=== PATIENT | male | born 1945 | race Caucasian/White ===

== ENCOUNTER → 2021-09-07 10:53 | Outpatient (BNVA) | payer MEDICARE, MEDICAID, SELFPAY | PROVIDERS: PCP General Practice; Visit Provider Internal Medicine Endocrinology, Diabetes & Metabolism | DX: E11.65 Type 2 diabetes mellitus with hyperglycemia (principal); Z79.4 Long term (current) use of insulin; Z79.84 Long term (current) use of oral hypoglycemic drugs | CPT/HCPCS: 82947; 99212 ==

== ENCOUNTER → 2022-02-14 10:07 | Outpatient (BNVA) | payer MEDICARE, MEDICAID, SELFPAY | PROVIDERS: PCP General Practice; Visit Provider Internal Medicine Endocrinology, Diabetes & Metabolism | DX: E11.65 Type 2 diabetes mellitus with hyperglycemia (principal); Z79.01 Long term (current) use of anticoagulants; Z51.81 Encounter for therapeutic drug level monitoring | CPT/HCPCS: 82947; 83036; 99212 ==

== ENCOUNTER 2022-07-18 09:00 | Outpatient (REF) | payer MEDICARE, MEDICAID, SELFPAY ==
[2022-07-18 10:01] LABS: Anion Gap 14 (12-20); Blood Urea Nitrogen 22 mg/dL (9-16); Calcium 9.7 mg/dL (8.4-10.2); Carbon Dioxide 24 mmol/L (22-29); Chloride 105 mmol/L (96-108); Cholesterol 264 mg/dL; Estimated Glomerular Filt Rate 60; Glucose Random 186 mg/dL (60-115); HDL Cholesterol 38 mg/dL; LDL Cholesterol Calculated 180 mg/dl; Potassium 4.3 mmol/L (3.3-5.1); Sodium 139 mmol/L (135-145); Triglycerides 233 mg/dL
[2022-07-18 10:38] LABS: Creatinine Urine 77.91 mg/dL; Microalbum/Creatinine Ratio Ur 17.9 ug/mg cr
== END 2022-07-18 09:01 | disposition home or self-care (01) ==
LOC: HO.LAB 09:00
PROVIDERS: Visit Provider Internal Medicine Endocrinology, Diabetes & Metabolism
DX: E11.65 Type 2 diabetes mellitus with hyperglycemia (principal)
CPT/HCPCS: 36415; 80048; 80061; 82043

== ENCOUNTER → 2022-07-20 08:55 | Outpatient (BNVA) | payer MEDICARE, MEDICAID, SELFPAY | PROVIDERS: PCP General Practice; Visit Provider Registered Nurse Diabetes Educator | DX: E11.65 Type 2 diabetes mellitus with hyperglycemia (principal) | CPT/HCPCS: 99211 ==

== ENCOUNTER 2022-08-02 09:46 | Outpatient (REF) | payer OTHER, MEDICAID, SELFPAY ==
--- NOTE | ~2022-08-02 | XR_ITS ---
EXAMINATION: XR CHEST CLINICAL INFORMATION: Shortness of breath. Positive PPD COMPARISON: July 16, 2015 TECHNIQUE: 2 views of the chest were obtained. FINDINGS: No significant abnormality is noted involving the heart, lungs, mediastinum, bony thorax or soft tissues. XR/XR chest 2V IMPRESSION: No acute disease.
== END 2022-08-02 09:47 | disposition home or self-care (01) ==
LOC: HO.XRAY 09:46
PROVIDERS: Visit Provider Internal Medicine
DX: R76.11 Nonspecific reaction to tuberculin skin test without active tuberculosis (principal)
CPT/HCPCS: 71046

== ENCOUNTER → 2022-08-09 10:56 | Outpatient (BNVA) | payer OTHER, MEDICAID, SELFPAY | PROVIDERS: PCP General Practice; Visit Provider Internal Medicine Endocrinology, Diabetes & Metabolism | DX: E11.65 Type 2 diabetes mellitus with hyperglycemia (principal) | CPT/HCPCS: 82947; 83036; 99212 ==

== ENCOUNTER 2022-10-02 09:54 | Outpatient (REF) | payer OTHER, MEDICAID, SELFPAY ==
[2022-10-02 13:02] LABS: Thyroid Stimulating Hormone 5.91 uIU/mL (0.32-4.0)
== END 2022-10-02 09:55 | disposition home or self-care (01) ==
LOC: HO.HHCL 09:54
PROVIDERS: Student in an Organized Health Care Education/Training Program; Visit Provider General Practice
DX: R94.6 Abnormal results of thyroid function studies (principal)
CPT/HCPCS: 36415; 84443

== ENCOUNTER 2023-10-19 10:12 | Emergency (ER) | payer OTHER, SELFPAY ==
[2023-10-19 10:18] VITALS: BP 137/84; PULSE 75; RESP 16; TEMP 36.6; O2SAT 94; BMI 28.7
--- NOTE | 2023-10-19 10:55 | ED_ITS ---
HPI - Eye Problem General Chief complaint: Eye Problems Stated complaint: eye pain pt is blind Time Seen by Provider: 10/19/23 10:49 History of Present Illness HPI Narrative: Patient has been blind for many years He complains over past 10 days he has had some pain in the upper aspect of his right eye Family reports that his cat 10 days ago and he has been crying and rubbing his eye a lot Family says he has been sleeping well at night but complaining of the pain in his right eye Family denies any rash or any other possible injury, denies any discharge from the eye denies any possible foreign body Related Data Home Medications ?Medication ?Instructions ?Recorded ?Confirmed aspirin 81 mg tablet,delayed 81 mg PO QAM 09/07/21 release cholecalciferol (vitamin D3) 50 50 mcg PO QAM 09/07/21 mcg (2,000 unit) tablet tamsulosin 0.4 mg capsule 0.4 mg PO QAM 09/07/21 cyanocobalamin (vitamin B-12) 1,000 mcg PO Q OTHER DAY 02/14/22 1,000 mcg tablet blood sugar diagnostic (FreeStyle 08/09/22 Lite Strips) blood-glucose meter (FreeStyle 08/09/22 Lite Meter kit) insulin glargine 100 unit/mL (3 40 unit subcut DAILY 08/09/22 mL) subcutaneous pen (Lantus Solostar U-100 Insulin) lancets 28 gauge (FreeStyle 08/09/22 Lancets) Previous Rx's ?Medication ?Instructions ?Recorded pen needle, diabetic 32 gauge x #50 ea 02/02/20 (BD Manasa 2nd Gen Pen Needle) metformin 500 mg tablet,extended 1,000 mg (2 x 500 mg) PO BID 30 02/27/20 release 24 hr days #120 tabs flash glucose scanning reader #1 ea 08/09/22 (FreeStyle Michael 2 [place]) atorvastatin 40 mg tablet 40 mg PO DAILY #30 tabs 01/17/23 dulaglutide 3 mg/0.5 mL 3 mg (0.5 mL) subcut QWEEK #2 mL 02/23/23 subcutaneous pen injector (SpineGuard) flash glucose sensor (FreeStyle #2 kits 02/23/23 Michael 2 Sensor kit) Allergies Allergy/AdvReac Type Severity Reaction Status Date / Time Beef Containing Products Allergy Unknown SWELLING Verified 10/19/23 10:23 penicillin G [Penicillin G] Allergy Unknown RASH,ITCHIN Verified 10/19/23 10:23 G penicillin V Allergy Unknown Swelling Verified 10/19/23 10:23 shrimp Allergy Unknown SWELLING Verified 10/19/23 10:23 [facility] Past Medical History Source: nursing notes reviewed Medical History (Updated 10/19/23 @ 12:11 by KELLY Marinelli) Diabetes type 2, uncontrolled Surgical History No pertinent past surgical history Family History Family History Mother No problems noted. Father No problems noted. Social History Social History Patient Tobacco Use Status: Never used Tobacco Advance Directives: No Advance Directives Information Provided: Yes Physical Exam Vital Signs: Vital Signs: Last Vital Signs Temp 97.8 F 10/19/23 10:18 Pulse 75 10/19/23 10:18 Resp 16 10/19/23 10:18 BP 137/84 10/19/23 10:18 Pulse Ox 94 10/19/23 10:18 O2 Del Method Room Air 10/19/23 10:18 BMI result Body Mass Index 28.7 General appearance no acute distress Head is normocephalic atraumatic neck is supple Respiratory no distress Extremities full range motion x4 Eye exam the right eye is blind and has been for a long time Extraocular motions are intact Flipping back the upper lid no foreign body visible no stye Lower lid normal as well, there is no discharge from the eye Staining with fluorescein did not show any dye uptake although he did have some relief of discomfort with tetracaine Ocular pressures tested with Gilles-Pen were normal Course Course Course Narrative: On exam I did not see any dye uptake but the patient had very good relief with tetracaine and was no longer complaining of eye pain, pressure reading was normal Patient will be discharged diagnosis eye pain, possibly a corneal abrasion that I missed as it was relieved with tetracaine Medications Administered Discontinued Medications Generic Name Dose Route Start Last Admin Trade Name Freq PRN Reason Stop Dose Admin Fluorescein Sodium 1 strip 10/19/23 11:35 10/19/23 11:42 Fluorescein Sodium Strip EYE-RIGHT 10/19/23 11:36 1 strip ONCE ONE Administration Fluorescein Sodium 1 strip 10/19/23 11:58 10/19/23 11:59 Fluorescein Sodium Strip EYE-LEFT 10/19/23 11:59 1 strip ONCE ONE Administration Tetracaine HCl 1 drop 10/19/23 11:35 10/19/23 11:42 Tetracaine Hcl/Pf 0.5% Oph Dahlia 4 Ml Drops EYE-RIGHT 10/19/23 11:36 1 drop ONCE ONE Administration Discharge Plan Discharge Clinical Impression: Eye pain Patient Disposition: Home, Self-Care Additional Instructions: I did not find any emergent condition in the right eye It did not appear to be infected, I did not see any foreign body under the upper lid or the lower lid, it is possible that he had a small scratch as pain was relieved with the drops If pain continues follow with eye doctor or primary doctor Return any time any worse condition or any concerns Use Tylenol as needed Prescriptions: No Action (DME) pen needle, diabetic [BD Manasa 2nd Gen Pen Needle] 32 gauge x 5/32 needle See Rx Instructions .MEDSUPPLY Qty: 50 4RF Rx Instructions: once a day metformin 500 mg tablet extended release 24 hr 1,000 mg PO BID 30 Days Qty: 120 2RF atorvastatin 40 mg tablet 40 mg PO DAILY Qty: 30 5RF (DME) FreeStyle Michael 2 Sensor Kit See Rx Instructions .ROUTE .COMPLEX Qty: 2 5RF Dose Instruction: USE DIRECTED TO TEST BLOOD SUGAR CHANGE EVERY 14 DAYS Rx Instructions: USE DIRECTED TO TEST BLOOD SUGAR CHANGE EVERY 14 DAYS Trulicity 3 mg/0.5 mL pen injector 3 mg subcut QWEEK Qty: 2 5RF cholecalciferol (vitamin D3) 50 mcg (2,000 unit) tablet 50 mcg PO QAM tamsulosin 0.4 mg capsule 0.4 mg PO QAM aspirin 81 mg tablet,delayed release (DR/EC) 81 mg PO QAM cyanocobalamin (vitamin B-12) 1,000 mcg tablet 1,000 mcg PO Q OTHER DAY Lantus Solostar U-100 Insulin 100 unit/mL (3 mL) insulin pen 40 unit subcut DAILY (DME) FreeStyle Lite Strips Strip See Rx Instructions .Route Rx Instructions: As directed (DME) blood-glucose meter [FreeStyle Lite Meter] Kit See Rx Instructions .Route Rx Instructions: As directed (DME) lancets [FreeStyle Lancets] 28 gauge misc See Rx Instructions .Route Rx Instructions: As directed (DME) FreeStyle Michael 2 [place] Misc See Rx Instructions .Route Qty: 1 0RF Rx Instructions: As directed Referrals: Dallas Araujo [Physician] - Print Language: Turkish
[2023-10-19] MEDS: Fluorescein Sodium STRIP 1 STRIP EYE-RIGHT (11:42)
[2023-10-19] MEDS: Tetracaine HCl/PF 0.5% Oph Sol 4 ML DROPS 1 DROP EYE-RIGHT (11:42)
[2023-10-19] MEDS: Fluorescein Sodium STRIP 1 STRIP EYE-LEFT (11:59)
[2023-10-19] MEDS: Acetaminophen 325 MG TABLET 975 MG PO (12:24)
[2023-10-19 12:47] VITALS: BP 137/84; PULSE 75; RESP 16; TEMP 36.6; O2SAT 94
== END 2023-10-19 12:47 | disposition home or self-care (01) ==
PROVIDERS: Emergency Provider Student in an Organized Health Care Education/Training Program
DX: H57.11 Ocular pain, right eye (principal)
CPT/HCPCS: 99283

== ENCOUNTER 2024-02-19 12:20 | Emergency (ER) | payer OTHER, SELFPAY ==
--- NOTE | ~2024-02-19 | XR_ITS ---
EXAMINATION: XR KNEE, RIGHT CLINICAL INFORMATION: pain COMPARISON: None available. TECHNIQUE: Four views of the right knee. FINDINGS: No acute cortical disruption or malalignment. Joint space narrowing involving the medial compartment. No suprapatellar bursa joint effusion. No lytic or blastic lesions. Vascular calcifications. No metallic or radiopaque foreign body. XR/XR knee RT 2V IMPRESSION: Medial compartment osteoarthrosis. Atherosclerosis disease, peripheral. Electronically signed by: North Fontana MD 02/19/2024 02:59 PM EST RP
[2024-02-19 13:20] VITALS: BP 145/87; PULSE 80; RESP 18; TEMP 36.6; O2SAT 96; BMI 31.6
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
[2024-02-19] MEDS: Ibuprofen 600 MG TABLET PO (13:28)
[2024-02-19 15:41] VITALS: BP 110/54; PULSE 68; RESP 16; TEMP 36.4; O2SAT 97
== END 2024-02-19 15:44 | disposition home or self-care (01) ==
PROVIDERS: Emergency Provider Emergency Medicine
DX: M17.11 Unilateral primary osteoarthritis, right knee (principal); M25.561 Pain in right knee; E11.9 Type 2 diabetes mellitus without complications; Z79.899 Other long term (current) drug therapy; Z79.4 Long term (current) use of insulin
CPT/HCPCS: 73560; 99283

== ENCOUNTER → 2024-02-19 13:24 | Outpatient (BNV) | payer OTHER, SELFPAY | PROVIDERS: Emergency Provider Emergency Medicine; Visit Provider Radiology Diagnostic Radiology | DX: M17.11 Unilateral primary osteoarthritis, right knee (principal) | CPT/HCPCS: 73560 ==

== ENCOUNTER 2024-02-21 00:24 | Emergency (ER) | payer OTHER, SELFPAY ==
[2024-02-21 00:30] VITALS: BP 140/72; PULSE 86; O2SAT 98
[2024-02-21 00:32] VITALS: BP 168/80; PULSE 89; RESP 22; TEMP 36.7; O2SAT 94; BMI 28.3
[2024-02-21] MEDS: Acetaminophen 325 MG TABLET 975 MG PO (00:48)
[2024-02-21 02:33] VITALS: BP 169/97; PULSE 82; RESP 16; TEMP 36.2; O2SAT 95
--- NOTE | 2024-02-21 02:58 | ED.EXTPRO ---
HPI - Extremity Problem General Chief complaint: Extremity Injury, Lower Stated complaint: 12/26 R knee & leg, can't walk, deaf&blind bangladeshi Time Seen by Provider: 02/21/24 02:58 Source: patient and family Mode of arrival: ambulatory Limitations: no limitations History of Present Illness ED Provider: HPI Narrative: Patient's history of severe arthritis received in intra-articular steroid about 6 months ago was doing fine now comes here with increased pain again in the right knee especially on ambulation took Tylenol with much relief Related Data Home Medications ?Medication ?Instructions ?Recorded ?Confirmed aspirin 81 mg tablet,delayed 81 mg PO QAM 09/07/21 release cholecalciferol (vitamin D3) 50 50 mcg PO QAM 09/07/21 mcg (2,000 unit) tablet tamsulosin 0.4 mg capsule 0.4 mg PO QAM 09/07/21 cyanocobalamin (vitamin B-12) 1,000 mcg PO Q OTHER DAY 02/14/22 1,000 mcg tablet blood sugar diagnostic (FreeStyle 08/09/22 Lite Strips) blood-glucose meter (FreeStyle 08/09/22 Lite Meter kit) insulin glargine 100 unit/mL (3 40 unit subcut DAILY 08/09/22 mL) subcutaneous pen (Lantus Solostar U-100 Insulin) lancets 28 gauge (FreeStyle 08/09/22 Lancets) Previous Rx's ?Medication ?Instructions ?Recorded pen needle, diabetic 32 gauge x #50 ea 02/02/20 5/32 (BD Manasa 2nd Gen Pen Needle) metformin 500 mg tablet,extended 1,000 mg (2 x 500 mg) PO BID 30 02/27/20 release 24 hr days #120 tabs flash glucose scanning reader #1 ea 08/09/22 (FreeStyle Michael 2 [place]) atorvastatin 40 mg tablet 40 mg PO DAILY #30 tabs 01/17/23 dulaglutide 3 mg/0.5 mL 3 mg (0.5 mL) subcut QWEEK #2 mL 02/23/23 subcutaneous pen injector ([employer]) flash glucose sensor (FreeStyle #2 kits 02/23/23 Michael 2 Sensor kit) ibuprofen 400 mg tablet 400 mg PO BEDTIME #30 tabs 02/19/24 Allergies Allergy/AdvReac Type Severity Reaction Status Date / Time Beef Containing Products Allergy Unknown SWELLING Verified 02/21/24 00:38 penicillin G [Penicillin G] Allergy Unknown RASH,ITCHIN Verified 02/21/24 00:38 G penicillin V Allergy Unknown Swelling Verified 02/21/24 00:38 shrimp Allergy Unknown SWELLING Verified 02/21/24 00:38 Review of Systems Review of Systems: Yes all other systems are reviewed and are negative [facility] Past Medical History Medical History Diabetes type 2, uncontrolled Surgical History No pertinent past surgical history Family History Family History Mother No problems noted. Father No problems noted. Social History Social History Patient Tobacco Use Status: Never used Tobacco Advance Directives: No Advance Directives Information Provided: Yes Do you have a plan to hurt others: No Plan Physical Exam Vital Signs: Vital Signs: Last Vital Signs Temp 97.9 F 02/21/24 04:30 Pulse 78 02/21/24 04:30 Resp 18 02/21/24 04:30 BP 143/91 H 02/21/24 04:30 Pulse Ox 95 02/21/24 04:30 O2 Del Method Room Air 02/21/24 04:30 BMI result Body Mass Index 28.3 Appearance: Alert. Oriented X3. No acute distress. ENT: Pharynx normal. Oral Mucosa moist Neck: Normal inspection. Neck supple. CVS: Normal heart rate and rhythm. Pulses normal. Respiratory: No respiratory distress. Equal air entry bilateral, no wheezing/rales/rhonchi Skin: Skin warm and dry. Normal skin color. Normal skin turgor. Extremities: No lower extremity edema. Diffuse tenderness right knee with mild effusion Neuro: Oriented X 3. Medications Administered Discontinued Medications Generic Name Dose Route Start Last Admin Trade Name Freq PRN Reason Stop Dose Admin Acetaminophen 975 mg 02/21/24 00:41 02/21/24 00:48 Acetaminophen 325 Mg Tablet PO 02/21/24 00:42 975 mg ONCE ONE Administration Medical Decision Making Medical Decision Making [facility] Narrative: Patient has severe arthritis of the right knee has a received steroids shots in the past advised to follow with orthopedic surgeon to get a cortisone shot Radiology Impression Discussion of test interpretation with radiology: I have reviewed the radiologist's reading. Radiologist Impression: [id number] [place] [address] XRay Report Signed Patient: Tavares Turner MR#: [id number] : 1945 Acct:[id number] Age/Sex: 78 / M ADM Date: 02/19/24 Loc: HO.ED Attending Dr: Ordering Physician: Pamela Zuñiga Date of Service: 02/19/24 Procedure(s): XR knee RT 2V Accession Number(s): [id number] cc: [facility]; Pamela Zuñiga~ EXAMINATION: XR KNEE, RIGHT CLINICAL INFORMATION: pain COMPARISON: None available. TECHNIQUE: Four views of the right knee. FINDINGS: No acute cortical disruption or malalignment. Joint space narrowing involving the medial compartment. No suprapatellar bursa joint effusion. No lytic or blastic lesions. Vascular calcifications. No metallic or radiopaque foreign body. XR/XR knee RT 2V IMPRESSION: Medial compartment osteoarthrosis. Atherosclerosis disease, peripheral. Electronically signed by: North Fontana MD 02/19/2024 02:[address] [facility] Discharge Plan Discharge Clinical Impression: Osteoarthritis of right knee Patient Disposition: Home, Self-Care Instructions: Osteoarthritis (ED) Additional Instructions: Take Tylenol every 6 hours as needed Rest your right knee, use Howie wrap Follow with Orthopedics for further management Prescriptions: No Action (DME) pen needle, diabetic [BD Manasa 2nd Gen Pen Needle] 32 gauge x 5/32 needle See Rx Instructions .MEDSUPPLY Qty: 50 4RF Rx Instructions: once a day metformin 500 mg tablet extended release 24 hr 1,000 mg PO BID 30 Days Qty: 120 2RF atorvastatin 40 mg tablet 40 mg PO DAILY Qty: 30 5RF (DME) FreeStyle Michael 2 Sensor Kit See Rx Instructions .ROUTE .COMPLEX Qty: 2 5RF Dose Instruction: USE DIRECTED TO TEST BLOOD SUGAR CHANGE EVERY 14 DAYS Rx Instructions: USE DIRECTED TO TEST BLOOD SUGAR CHANGE EVERY 14 DAYS Trulicity 3 mg/0.5 mL pen injector 3 mg subcut QWEEK Qty: 2 5RF ibuprofen 400 mg tablet 400 mg PO BEDTIME Qty: 30 0RF cholecalciferol (vitamin D3) 50 mcg (2,000 unit) tablet 50 mcg PO QAM tamsulosin 0.4 mg capsule 0.4 mg PO QAM aspirin 81 mg tablet,delayed release (DR/EC) 81 mg PO QAM cyanocobalamin (vitamin B-12) 1,000 mcg tablet 1,000 mcg PO Q OTHER DAY Lantus Solostar U-100 Insulin 100 unit/mL (3 mL) insulin pen 40 unit subcut DAILY (DME) FreeStyle Lite Strips Strip See Rx Instructions .Route Rx Instructions: As directed (DME) blood-glucose meter [FreeStyle Lite Meter] Kit See Rx Instructions .Route Rx Instructions: As directed (DME) lancets [FreeStyle Lancets] 28 gauge misc See Rx Instructions .Route Rx Instructions: As directed (DME) FreeStyle Michael 2 [place] Misc See Rx Instructions .Route Qty: 1 0RF Rx Instructions: As directed Interventions: ED Discharge Assessment Last Done: 02/21/24 04:30 Discharge Date/Time: 02/21/24 04:30 Print Language: Macedonian
[2024-02-21 03:50] VITALS: BP 143/91; PULSE 78; RESP 18; TEMP 36.6; O2SAT 95
[2024-02-21 04:30] VITALS: BP 143/91; PULSE 78; RESP 18; TEMP 36.6; O2SAT 95
== END 2024-02-21 04:30 | disposition home or self-care (01) ==
PROVIDERS: Emergency Provider Internal Medicine
DX: M17.11 Unilateral primary osteoarthritis, right knee (principal); Z79.899 Other long term (current) drug therapy
CPT/HCPCS: 99283

== ENCOUNTER 2024-03-08 08:17 | Emergency (ER) | payer OTHER, SELFPAY ==
--- NOTE | 2024-03-08 08:21 | ED.EPISTAXIS ---
History of Present Illness General Chief Complaint: Epistaxis Stated Complaint: NOSE BLEED FOR HOUR AND HALF Time Seen by Provider: 03/08/24 08:20 Source: family (Son and daughter) Mode of arrival: EMS Limitations: language barrier (Patient and daughter speaks Bangladeshi only, patient's son speaks Bangladeshi and Turkmen, [facility] sub prior used) History of Present Illness HPI Narrative: 78-year-old male with a history of diabetes mellitus, blindness and deafness who presents emergency department by ambulance for evaluation of left nares epistaxis. The states that the patient began bleeding several hours prior to coming to the emergency department. They describe the bleeding is severe and they were unable to stop it at home therefore they called an ambulance and the patient was brought to emergency department. The patient has been sick for the last several days with cough and rhinorrhea. Patient has not had any systemic symptoms such as fever, chills, fatigue. He was not had any other bleeding episodes or easy bruisability. Related Data Home Medications ?Medication ?Instructions ?Recorded ?Confirmed aspirin 81 mg tablet,delayed 81 mg PO QAM 09/07/21 release cholecalciferol (vitamin D3) 50 50 mcg PO QAM 09/07/21 mcg (2,000 unit) tablet tamsulosin 0.4 mg capsule 0.4 mg PO QAM 09/07/21 cyanocobalamin (vitamin B-12) 1,000 mcg PO Q OTHER DAY 02/14/22 1,000 mcg tablet blood sugar diagnostic (FreeStyle 08/09/22 Lite Strips) blood-glucose meter (FreeStyle 08/09/22 Lite Meter kit) insulin glargine 100 unit/mL (3 40 unit subcut DAILY 08/09/22 mL) subcutaneous pen (Lantus Solostar U-100 Insulin) lancets 28 gauge (FreeStyle 08/09/22 Lancets) Previous Rx's ?Medication ?Instructions ?Recorded pen needle, diabetic 32 gauge x #50 ea 02/02/20 (BD Manasa 2nd Gen Pen Needle) metformin 500 mg tablet,extended 1,000 mg (2 x 500 mg) PO BID 30 02/27/20 release 24 hr days #120 tabs flash glucose scanning reader #1 ea 08/09/22 (FreeStyle Michael 2 [place]) atorvastatin 40 mg tablet 40 mg PO DAILY #30 tabs 01/17/23 dulaglutide 3 mg/0.5 mL 3 mg (0.5 mL) subcut QWEEK #2 mL 02/23/23 subcutaneous pen injector ([employer]) flash glucose sensor (FreeStyle #2 kits 02/23/23 Michael 2 Sensor kit) ibuprofen 400 mg tablet 400 mg PO BEDTIME #30 tabs 02/19/24 Allergies Allergy/AdvReac Type Severity Reaction Status Date / Time Beef Containing Products Allergy Unknown SWELLING Verified 03/08/24 08:33 penicillin G [Penicillin G] Allergy Unknown RASH,ITCHIN Verified 03/08/24 08:33 G penicillin V Allergy Unknown Swelling Verified 03/08/24 08:33 shrimp Allergy Unknown SWELLING Verified 03/08/24 08:33 Review of Systems Review of Systems: Yes all other systems are reviewed and are negative [facility] Past Medical History [facility] Narrative: Social history: He lives with his family Medical History Diabetes type 2, uncontrolled Surgical History No pertinent past surgical history Family History Family History Mother No problems noted. Father No problems noted. Social History Social History Patient Tobacco Use Status: Never used Tobacco Smoked in Last 30 Days: No Use of substances other than those prescribed or required for medical reasons: No Advance Directives: No Advance Directives Information Provided: No Do you have a plan to hurt others: No Plan Physical Exam Vital Signs: Vital Signs: Last Vital Signs Temp 97.8 F 03/08/24 08:30 Pulse 95 03/08/24 08:30 Resp 20 03/08/24 08:30 BP 137/90 H 03/08/24 08:30 Pulse Ox 94 03/08/24 08:30 O2 Del Method Room Air 03/08/24 08:30 BMI result Body Mass Index 27.7 Vital signs were normal Exam Nose: The patient is not actively bleeding at this time but he does have a small area in his left anterior nasal which is consistent with a clot over a vessel. She was no blood in the right nares. Medications Administered Discontinued Medications Generic Name Dose Route Start Last Admin Trade Name Darrian PRN Reason Stop Dose Admin Cocaine HCl 4 ml 03/08/24 09:02 03/08/24 09:37 Cocaine Hcl 4 % 4 Ml Solution TOPICAL 03/08/24 09:03 4 ml ONCE ONE Administration Protocol Silver Nitrate 1 appl 03/08/24 09:05 03/08/24 09:38 Silver Nitrate Applicator Stick..Ea. TOPICAL 03/08/24 09:06 1 appl ONCE ONE Administration Medical Decision Making Medical Decision Making [facility] Narrative: 78-year-old male with a history of diabetes mellitus, blindness and deafness who presents emergency department by ambulance for evaluation of severe left side epistaxis with bleeding starting several hours prior to coming to the emergency department, family unable to stop the bleeding. Patient was had rhinorrhea and a cough for several days but no other concerning systemic symptoms. Vital signs were stable. Left nostril examination did reveal any active bleeding but there was a visible vessel on the left anterior nasal septum that is most likely the source of bleeding Differential diagnosis: ?Includes but is not limited to anterior epistaxis, posterior epistaxis,, bleeding dyscrasia, anemia Course: 11:09 The patient was packed with cotton soaked with 4% cocaine for 20 minutes x2 and then cauterized with 3 silver nitrate sticks. Patient was observed for 20-30 minutes after procedure and he was not actively bleeding. The patient family were given printed and verbal instructions the patient was discharged home. Admission/Observation Consideration of admission/observation: Escalation of care including admission/observation considered (Yes) Lab Data [facility] Lab Attestation statement: I reviewed the patient's lab results. Chronic Conditions Patient?s care impacted by: Diabetes Procedures Procedure Narrative Procedure Narrative: Epistaxis Control Time Out Performed: No Nostril: Yes left Nose prepped with: Yes cocaine 4% ( 2 cotton plinths soaked in cocaine placed in left nostril x 20m x 2) Direct inspection: Yes anterior source identified Direct inspection method: Yes nasal speculum Epistaxis treatment: Yes silver nitrate cautery (3 silver nitrate sticks used to cauterize the bleeding area) Results of treatment: Yes bleeding controlled Complications: Yes none Discharge Plan Discharge Clinical Impression: Left-sided epistaxis Patient Disposition: Home, Self-Care Instructions: Nosebleed (ED) Additional Instructions: You were packed with 4% dilute cocaine solution for 40 minutes. I then cauterized your nose with silver nitrate sticks Do not put anything in your nose, rub your nose or blow your nose for the next 2 days. After 2 days I want you to apply bacitracin with your finger, just inside of your she keep your nose from drying out. Stop your aspirin for 2 days. If you start bleeding on apply pressure to the frontal part of your nose with the nose fingers for 20 minutes. If this does not stop the bleeding then return to the emergency department for re-evaluation Follow-up with your doctor in 2 days. Please return to the emergency department if your symptoms get worse or if you develop any symptoms that are concerning to you. Prescriptions: No Action (DME) pen needle, diabetic [BD Manasa 2nd Gen Pen Needle] 32 gauge x 5/32 needle See Rx Instructions .MEDSUPPLY Qty: 50 4RF Rx Instructions: once a day metformin 500 mg tablet extended release 24 hr 1,000 mg PO BID 30 Days Qty: 120 2RF atorvastatin 40 mg tablet 40 mg PO DAILY Qty: 30 5RF (DME) FreeStyle Michael 2 Sensor Kit See Rx Instructions .ROUTE .COMPLEX Qty: 2 5RF Dose Instruction: USE DIRECTED TO TEST BLOOD SUGAR CHANGE EVERY 14 DAYS Rx Instructions: USE DIRECTED TO TEST BLOOD SUGAR CHANGE EVERY 14 DAYS Trulicity 3 mg/0.5 mL pen injector 3 mg subcut QWEEK Qty: 2 5RF ibuprofen 400 mg tablet 400 mg PO BEDTIME Qty: 30 0RF cholecalciferol (vitamin D3) 50 mcg (2,000 unit) tablet 50 mcg PO QAM tamsulosin 0.4 mg capsule 0.4 mg PO QAM aspirin 81 mg tablet,delayed release (DR/EC) 81 mg PO QAM cyanocobalamin (vitamin B-12) 1,000 mcg tablet 1,000 mcg PO Q OTHER DAY Lantus Solostar U-100 Insulin 100 unit/mL (3 mL) insulin pen 40 unit subcut DAILY (DME) FreeStyle Lite Strips Strip See Rx Instructions .Route Rx Instructions: As directed (DME) blood-glucose meter [FreeStyle Lite Meter] Kit See Rx Instructions .Route Rx Instructions: As directed (DME) lancets [FreeStyle Lancets] 28 gauge misc See Rx Instructions .Route Rx Instructions: As directed (DME) FreeStyle Michael 2 [place] Misc See Rx Instructions .Route Qty: 1 0RF Rx Instructions: As directed Print Language: Bangladeshi
[2024-03-08 08:30] VITALS: BP 133/92; BP 137/90; PULSE 95; PULSE 98; RESP 20; TEMP 36.6; O2SAT 94; O2SAT 99; BMI 27.7
[2024-03-08] MEDS: Cocaine HCl 4 % 4 ML SOLUTION TOPICAL (09:37)
[2024-03-08] MEDS: Silver Nitrate Applicator STICK..EA. 1 APPL TOPICAL (09:38)
[2024-03-08 11:03] VITALS: BP 125/91; PULSE 80; RESP 18; TEMP 36.6; O2SAT 98
[2024-03-08 11:12] VITALS: BP 128/80; PULSE 100; RESP 12; TEMP 36.8
== END 2024-03-08 11:13 | disposition home or self-care (01) ==
PROVIDERS: Emergency Provider Emergency Medicine Emergency Medical Services
DX: R04.0 Epistaxis (principal); E11.9 Type 2 diabetes mellitus without complications; R05.9 Cough, unspecified; Z79.4 Long term (current) use of insulin; Z79.84 Long term (current) use of oral hypoglycemic drugs; Z79.82 Long term (current) use of aspirin; Z79.899 Other long term (current) drug therapy
CPT/HCPCS: 30901; 99284; C9143

== ENCOUNTER 2024-03-14 10:47 | Outpatient (REF) | payer SELFPAY ==
[2024-03-14 11:53] LABS: Basophils Absolute Auto 0.1 X10*3/uL (0.0-0.2); Basophils Percent Auto 0.5 % (0-2); Hematocrit 47.2 % (42.0-52.0); Hemoglobin 15.3 g/dl (14.0-18.0); Imm Gran Abs Auto 0.08 X10*3/uL (0.00-0.03); Imm Gran Pct Auto 0.8 % (0.0-0.4); Lymphocytes Absolute Auto 2.6 X10*3/uL (1.2-4.9); Lymphocytes Percent Auto 26.8 % (20-40); MANUAL DIFF FLAG SCAN; Mean Corpuscular HGB Conc 32.4 g/dl (31.0-36.0); Mean Corpuscular Hemoglobin 26.9 pg (27.0-33.0); Mean Corpuscular Volume 83.1 fL (80.0-98.0); Monocytes Absolute Auto 0.9 X10*3/uL (0.1-1.2); Monocytes Percent Auto 9.1 % (2-11); Neutrophils Absolute Auto 6.1 x10*3/uL (2.0-8.3); Neutrophils Percent Auto 62.8 % (45-73); PLT CLUMP 1; Red Blood Count 5.68 X10*6/uL (4.60-5.80); Red Cell Distribution Width 13.3 % (11.0-16.0); SCAN SMEAR FLAG 1
[2024-03-14 12:37] LABS: Anion Gap 13 (12-20); Blood Urea Nitrogen 17 mg/dL (9-16); Calcium 9.3 mg/dL (8.4-10.2); Carbon Dioxide 23 mmol/L (22-29); Chloride 101 mmol/L (96-108); Estimated Glomerular Filt Rate > 60; Glucose Random 305 mg/dL (60-115); Potassium 4.2 mmol/L (3.3-5.1); Sodium 133 mmol/L (135-145)
[2024-03-14 12:42] LABS: Platelet Count 233 X10*3/uL (160-400); White Blood Count 9.7 X10*3/uL (4.8-10.8)
[2024-03-14 12:43] LABS: SLIDE REVIEW VERIFIED
== END 2024-03-14 10:48 | disposition home or self-care (01) ==
LOC: HO.HHCL 10:47
PROVIDERS: Visit Provider Emergency Medicine
DX: Z87.898 Personal history of other specified conditions (principal)
CPT/HCPCS: 36415; 80048; 85025; 85610

== ENCOUNTER 2024-10-15 07:53 | Outpatient (REF) | payer OTHER, SELFPAY ==
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
== END 2024-10-15 07:54 | disposition home or self-care (01) ==
LOC: HO.HOSX 07:53
PROVIDERS: Visit Provider Orthopaedic Surgery
DX: Z13.89 Encounter for screening for other disorder (principal)